=== PATIENT | female | born 1970 | race Hispanic/Latino ===

== ENCOUNTER 2018-07-22 12:17 | Emergency (ER) | payer BC ==
[2018-07-22 13:20] VITALS: BP 143/89; PULSE 79; RESP 16; TEMP 98; O2SAT 100
--- NOTE | 2018-07-22 14:16 | ED PDOC ---
Lower Extremity Pain/Injury Time Seen by Provider: 07/22/18 13:37 Chief Complaint (Nursing): Lower Extremity Problem/Injury History Per: Patient History/Exam Limitations: no limitations Onset/Duration Of Symptoms: Persistent Additional History Per: Patient Additional Complaint(s): Pt. reports long history of right knee pain, has been under the care of [place]ist [place], has received cortisone infections and is due for "gel" injection soon. Pt. is here in [place] visiting her sister and while leavin a store yesterday, twisted her right knee, aggrevating her chronic knee pain. Pt. has been ambulatory since - Hip Description Of Injury: Tripped Past Medical History Reviewed: Historical Data, Nursing Documentation, Vital Signs Vital Signs: Last Vital Signs Temp 98.0 F 07/22/18 13:18 Pulse 79 07/22/18 13:18 Resp 16 07/22/18 13:18 BP 143/89 07/22/18 13:18 Pulse Ox 100 07/22/18 13:18 - Medical History PMH: No Chronic Diseases - Surgical History Surgical History: Cholecystectomy - Family History Family History: States: Unknown Family Hx - Allergies Allergies/Adverse Reactions: Allergies Allergy/AdvReac Type Severity Reaction Status Date / Time No Known Allergies Allergy Verified 07/22/18 13:18 Review of Systems Constitutional: Negative for: Fever, Chills Neurological: Negative for: Weakness, Numbness Physical Exam - Reviewed Nursing Documentation Reviewed: Yes Vital Signs Reviewed: Yes - Physical Exam Appears: Positive for: Well, No Acute Distress Skin: Positive for: Normal Color, Warm, Dry Extremity: Positive for: Normal ROM, Tenderness (Mild tenderness with swelling over anterior and superior aspect of knee. FROM. NO distal neurovascular deficit. No calf swelling or tenderness). Negative for: Calf Tenderness - ECG O2 Sat by Pulse Oximetry: 100 Medical Decision Making Medical Decision Making: Motrin offered, pt. declined, has at home. X-ray offered, pt. declined, has had multiple negative x-rays. Pt. was hoping to see an orthopedist here for injections to her knee. Explained to pt. that with exam as above, no evidence of infection or acute bony injury, no indication for emergent ortho consult. Pt. agrees to f/u with ortho here or back in [place]. She has her own motrin and knee brace at home. Disposition - Clinical Impression Clinical Impression: Knee injury, Knee pain - Patient ED Disposition Is Patient to be Admitted: No Counseled Patient/Family Regarding: Diagnosis, Need For Followup - Disposition Referrals: Nancy Monet MD [Staff Provider] - Disposition: Routine/Home Disposition Time: 14:20 Condition: STABLE Instructions: Chronic Knee Pain (DC)
== END 2018-07-22 14:17 | disposition home or self-care (01) ==
LOC: H.ER 12:17
DX: M25.561 Pain in right knee (principal)